=== PATIENT | female | born 1945 | race Two or more races ===

== ENCOUNTER 2022-05-26 21:23 | Inpatient (IN) | payer MEDICARE, OTHER ==
[~2022-05-26] VITALS: Ht 167.6 cm; Wt 81.6 kg
[2022-05-26 22:57] LABS: BILIRUBIN,URINE NEGATIVE (NEGATIVE); COLOR,URINE YELLOW (YELLOW); LEUKOCYTE ESTERASE ,URINE NEGATIVE (NEGATIVE); NITRITE, URINE NEGATIVE (NEGATIVE); PROTEIN,URINE NEGATIVE (NEGATIVE); UGLUCOSE NEGATIVE (NEGATIVE); UROBILINOGEN,URINE 0.2 EU/dL (0.2)
[2022-05-26 22:57] LABS: BASOPHILS % (AUTO) 0.8 % (0.0-2.0); EOSINOPHILS % (AUTO) 4.7 % (0.0-6.0); HEMATOCRIT 40 % (33-45); LYMPHOCYTES # (AUTO) 1.4 K/uL (0.8-4.8); LYMPHOCYTES % (AUTO) 25.4 % (20.0-44.0); MEAN CORPUSCULAR HGB CONC 33 g/dl (31.0-36.0); MEAN CORPUSCULAR VOLUME 86 fL (82-100); MONOCYTES # (AUTO) 0.5 K/uL (0.1-1.30); MONOCYTES % (AUTO) 8.2 % (2.0-12.0); NEUTROPHILS # (AUTO) 3.4 K/uL (1.8-8.9); NEUTROPHILS % (AUTO) 60.9 % (43.0-81.0); PLATELET COUNT (AUTO) 233 K/uL (150-450); RED BLOOD CELL COUNT(AUTO) 4.63 MIL/uL (4.0-5.2); WHITE BLOOD COUNT (AUTO) 5.5 K/uL (4.3-11.0)
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
[2022-05-26 23:17] LABS: CALCIUM, SERUM 9.2 mg/dL (8.5-10.1); CARBON DIOXIDE 30 mmol/L (21-32); CHLORIDE 105 mmol/L (98-107); CREATININE 0.9 mg/dL (0.6-1.3); GLUCOSE 118 mg/dL (74-106); POTASSIUM 3.8 mmol/L (3.5-5.1); SODIUM SERUM 142 mmol/L (136-145); UREA NITROGEN, BLOOD 13 mg/dL (7-18)
[2022-05-26 23:21] LABS: ALANINE AMINOTRANSFERASE 62 U/L (12-78); ALBUMIN 3.6 g/dL (3.4-5.0); ALCOHOL, BLOOD < 3 mg/dL (0-0); ALKALINE PHOSPHATASE 103 U/L (46-116); ASPARTATE AMINOTRANSFERASE 35 U/L (15-37); BILIRUBIN,DIRECT 0.2 mg/dL (0.0-0.2); BILIRUBIN,TOTAL 0.3 mg/dL (0.2-1.0); TOTAL PROTEIN, SERUM 7.8 g/dL (6.4-8.2)
[2022-05-27] MEDS ORDERED: ACET325T53 PO (03:13)
[2022-05-27] MEDS ORDERED: METF-440 PO (03:13)
[2022-05-27] MEDS ORDERED: PANT40TA49 PO (03:13)
[2022-05-27] MEDS ORDERED: LEVO125T8 PO (03:13)
[2022-05-27] MEDS ORDERED: PALI156D IM (03:13)
[2022-05-27] MEDS ORDERED: ASCO-373 PO (03:13)
[2022-05-27] MEDS ORDERED: MAGN400O21 PO (03:13)
[2022-05-27] MEDS ORDERED: ASPI-1169 PO (03:13)
[2022-05-27] MEDS ORDERED: SERT100T PO (03:13)
[2022-05-27] MEDS ORDERED: LISI2.5T2 PO (03:13)
[2022-05-27] MEDS ORDERED: MAG30ORA PO (03:13)
[2022-05-27] MEDS ORDERED: RISP1TAB7 PO (03:13)
[2022-05-27] MEDS ORDERED: BENZ2TAB7 PO (03:13)
[2022-05-27] MEDS ORDERED: FERR325T23 PO (03:13)
--- NOTE | 2022-05-27 03:50 | NUR ---
PT TO GPS VIA [facility].
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
[2022-05-27] MEDS ORDERED: ACETAMINOPHEN 325 MG TABLET PO PRN ×2 (04:30→11:30)
[2022-05-27] MEDS ORDERED: TEMAZEPAM 7.5 MG CAPSULE PO PRN (04:30)
[2022-05-27] MEDS ORDERED: MAG HYDROX/AL HYDROX/SIMETH 30 ML UDC PO PRN ×2 (04:30→11:30)
[2022-05-27] MEDS ORDERED: BLOOD SUGAR DIAGNOSTIC 1 EACH STRIP IN ONE (04:30)
[2022-05-27] MEDS ORDERED: MAGNESIUM HYDROXIDE 30 ML UDC PO PRN ×2 (04:30→11:30)
[2022-05-27 04:41] VITALS: BP 123/74
--- NOTE | 2022-05-27 07:30 | NUR ---
PT RECEIVED RESTING COMFORTABLY IN BED. NO S/S OR C/O PAIN OR DISTRESS NOTED SIDE RAILS UP X2. WILL CONTINUE PLAN OF CARE.
[2022-05-27 08:00] VITALS: BP 152/78
[2022-05-27] MEDS: LEVOTHYROXINE SODIUM 125 MCG TABLET PO SCH (12:04)
[2022-05-27] MEDS: FERROUS SULFATE (325 MG) 325 MG/TAB TABLET PO SCH (12:04)
[2022-05-27] MEDS: ASPIRIN 81 MG TAB.CHEW PO SCH (12:05)
[2022-05-27 16:00] VITALS: BP 127/60
[2022-05-27] MEDS: risperiDONE 1 MG TABLET PO SCH ×2 (17:35→21:27)
[2022-05-27] MEDS: METFORMIN 500 MG TABLET PO SCH (17:35)
--- NOTE | 2022-05-27 18:30 | NUR ---
CHANGE OF SHIFT REPORT PT RESTING COMFORTABLY IN BED. NO S/S OR C/O PAIN OR DISTRESS NOTED. SIDE RAILS UP X2, CALL LIGHT LEFT WITHIN REACH. PT KEPT CLEAN, DRY, AND COMFORTABLE. NO SIGNIFICANT CHANGES SINCE PREVIOUS SHIFT.
[2022-05-27 21:34] VITALS: BP 143/73
[2022-05-28 06:54] LABS: BASOPHILS % (AUTO) 0.7 % (0.0-2.0); EOSINOPHILS % (AUTO) 5.4 % (0.0-6.0); HEMATOCRIT 38 % (33-45); HEMOGLOBIN 12.5 g/dL (11.5-14.8); LYMPHOCYTES # (AUTO) 1.5 K/uL (0.8-4.8); MEAN CORPUSCULAR HGB CONC 33 g/dl (31.0-36.0); MEAN CORPUSCULAR VOLUME 86 fL (82-100); MONOCYTES # (AUTO) 0.5 K/uL (0.1-1.30); MONOCYTES % (AUTO) 8.5 % (2.0-12.0); NEUTROPHILS # (AUTO) 3.9 K/uL (1.8-8.9); NEUTROPHILS % (AUTO) 61.4 % (43.0-81.0); PLATELET COUNT (AUTO) 215 K/uL (150-450); RED BLOOD CELL COUNT(AUTO) 4.39 MIL/uL (4.0-5.2); WHITE BLOOD COUNT (AUTO) 6.3 K/uL (4.3-11.0)
[2022-05-28] MEDS: PANTOPRAZOLE 40 MG TABLET.DR PO SCH ×2 (07:30→08:22)
[2022-05-28 07:33] LABS: CALCIUM, SERUM 8.6 mg/dL (8.5-10.1); POTASSIUM 3.9 mmol/L (3.5-5.1)
[2022-05-28 08:00] VITALS: BP 142/65
[2022-05-28] MEDS: METFORMIN 500 MG TABLET PO SCH ×2 (08:22→16:21)
[2022-05-28] MEDS: LISINOPRIL (5MG) 5 MG TABLET PO SCH (08:23)
[2022-05-28] MEDS: ASPIRIN 81 MG TAB.CHEW PO SCH ×2 (08:23→09:00)
[2022-05-28] MEDS: LEVOTHYROXINE SODIUM 125 MCG TABLET PO SCH (08:23)
[2022-05-28] MEDS: risperiDONE 1 MG TABLET PO SCH ×3 (08:24→21:40)
[2022-05-28] MEDS: FERROUS SULFATE (325 MG) 325 MG/TAB TABLET PO SCH (08:24)
[2022-05-28] MEDS: ASCORBIC ACID 500 MG TABLET PO SCH (08:25)
--- NOTE | 2022-05-28 09:38 | NUR ---
SW Treatment Plan: Pt refused to sign treatment plan and was paranoid.
--- NOTE | 2022-05-28 09:38 | NUR ---
GIL Initial Discharge Note: Patient currently resides at [facility] [address] [place] [address] [facility] [place] [address] . [facility]anga admin ([phone]) stated that pt is welcomed back when stable. GIL will contact pt's daughter Linda ([phone]) to discuss treatment/discharge plan. GIL will work with the MD, family, and pt to help coordinate appropriate discharge.
--- NOTE | 2022-05-28 09:39 | NUR ---
GIL Clinical Note: Pt placed on a 5150 hold for GD. Pt was paranoid at the facility. Patient currently resides at [address] [place] [address] . [facility]anga admin ([phone]) stated that pt is welcomed back when stable. GIL will contact pt's daughter Linda ([phone]) to discuss treatment/discharge plan. GIL will work with the MD, family, and pt to help coordinate appropriate discharge.
--- NOTE | 2022-05-28 15:13 | NUR ---
GIL Family Contact: GIL contacted pt's daughter Linda ([phone]) and left a detailed voicemail of pt's admission stating [facility] and pt will be welcomed back when stable.
[2022-05-28 16:00] VITALS: BP 111/52
[2022-05-28] MEDS: LORAZEPAM 0.5 MG TABLET PO PRN (17:56)
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
[2022-05-28 19:56] VITALS: BP 147/62
[2022-05-29 08:00] VITALS: BP 121/53
[2022-05-29] MEDS: PANTOPRAZOLE 40 MG TABLET.DR PO SCH (08:08)
[2022-05-29] MEDS: LEVOTHYROXINE SODIUM 125 MCG TABLET PO SCH (08:08)
[2022-05-29] MEDS: ASPIRIN 81 MG TAB.CHEW PO SCH (09:08)
[2022-05-29] MEDS: risperiDONE 1 MG TABLET PO SCH ×3 (09:08→21:07)
[2022-05-29] MEDS: LISINOPRIL (5MG) 5 MG TABLET PO SCH (09:09)
[2022-05-29] MEDS: METFORMIN 500 MG TABLET PO SCH ×2 (09:10→16:42)
[2022-05-29] MEDS: ASCORBIC ACID 500 MG TABLET PO SCH (09:10)
[2022-05-29] MEDS: FERROUS SULFATE (325 MG) 325 MG/TAB TABLET PO SCH (09:10)
[2022-05-29 16:00] VITALS: BP 130/57
[2022-05-29 20:04] VITALS: BP 117/50
[2022-05-30 08:00] VITALS: BP 128/44
[2022-05-30] MEDS: PANTOPRAZOLE 40 MG TABLET.DR PO SCH (08:16)
[2022-05-30] MEDS: LEVOTHYROXINE SODIUM 125 MCG TABLET PO SCH (08:16)
[2022-05-30] MEDS: ASPIRIN 81 MG TAB.CHEW PO SCH (08:16)
[2022-05-30] MEDS: LISINOPRIL (5MG) 5 MG TABLET PO SCH (08:16)
[2022-05-30] MEDS: METFORMIN 500 MG TABLET PO SCH ×2 (08:17→17:07)
[2022-05-30] MEDS: FERROUS SULFATE (325 MG) 325 MG/TAB TABLET PO SCH (08:17)
[2022-05-30] MEDS: risperiDONE 1 MG TABLET PO SCH ×3 (08:17→21:05)
[2022-05-30] MEDS: ASCORBIC ACID 500 MG TABLET PO SCH (08:17)
[2022-05-30 16:00] VITALS: BP 118/51
--- NOTE | 2022-05-30 19:30 | NUR ---
RN notes Received Pt from morning nurse. Pt is awake laying in bed comfortably. Pt is alert and orientedX2, calm, cooperative, isolative, anxious, med compliant and directable. Reality orientation provided. VS is stable. on room air. No SOB. No S/s of distress noted. Snacks is offered. safety precautions is maintained. Will continue to monitor Q 15 mins checks for safety and behavior.
[2022-05-30 19:55] VITALS: BP 128/54
[2022-05-30] MEDS: LORAZEPAM 0.5 MG TABLET PO PRN (23:49)
--- NOTE | 2022-05-30 23:50 | NUR ---
RN notes Pt is feeling anxious, and argumentative. Administered ativan as ordered. safety precautions is maintained. will continue to monitor.
[2022-05-31 08:00] VITALS: BP 129/61
[2022-05-31] MEDS: ASPIRIN 81 MG TAB.CHEW PO SCH (08:11)
[2022-05-31] MEDS: PANTOPRAZOLE 40 MG TABLET.DR PO SCH (08:11)
[2022-05-31] MEDS: LEVOTHYROXINE SODIUM 125 MCG TABLET PO SCH (08:11)
[2022-05-31] MEDS: ASCORBIC ACID 500 MG TABLET PO SCH (08:12)
[2022-05-31] MEDS: LISINOPRIL (5MG) 5 MG TABLET PO SCH (08:12)
[2022-05-31] MEDS: FERROUS SULFATE (325 MG) 325 MG/TAB TABLET PO SCH (08:12)
[2022-05-31] MEDS: METFORMIN 500 MG TABLET PO SCH ×2 (08:12→16:12)
[2022-05-31] MEDS: risperiDONE 1 MG TABLET PO SCH ×3 (08:12→21:41)
[2022-05-31 16:00] VITALS: BP 140/52
[2022-05-31 20:00] VITALS: BP 126/72
--- NOTE | 2022-06-01 05:19 | NUR ---
CLOSING NOTES: AMBULATES INDEPENDENTLY STEADY ON HER LEGS WILL ASK FOR MANY ITEMS JUICE MOUTHWASH FOOD TOOTHPASTE FEMALE PADS UNDERWEAR. SLEPT THUR THE NIGHT GOING TO BED AT 10PM SPEECH CLEAR MEDICATION COMPLIANT
--- NOTE | 2022-06-01 07:45 | NUR ---
rn notes Pt is awake laying in bed comfortably. Pt is alert and orientedX2, calm, cooperative, isolative, anxious, and med compliant. Reality orientation provided. VS is stable. on room air. No SOB. No S/s of distress noted. safety precautions is maintained. Will continue to monitor Q 15 mins checks for safety and behavior.
[2022-06-01 08:00] VITALS: BP 128/65
[2022-06-01] MEDS: PANTOPRAZOLE 40 MG TABLET.DR PO SCH (08:09)
[2022-06-01] MEDS: LEVOTHYROXINE SODIUM 125 MCG TABLET PO SCH (08:09)
[2022-06-01] MEDS: FERROUS SULFATE (325 MG) 325 MG/TAB TABLET PO SCH (08:19)
[2022-06-01] MEDS: ASPIRIN 81 MG TAB.CHEW PO SCH (08:19)
[2022-06-01] MEDS: ASCORBIC ACID 500 MG TABLET PO SCH (08:20)
[2022-06-01] MEDS: METFORMIN 500 MG TABLET PO SCH ×2 (08:20→16:26)
[2022-06-01] MEDS: LISINOPRIL (5MG) 5 MG TABLET PO SCH (08:20)
[2022-06-01] MEDS: risperiDONE 1 MG TABLET PO SCH ×3 (08:20→21:19)
--- NOTE | 2022-06-01 09:21 | NUR ---
Court Notification: SW contacted pt's daughter Linda ([phone]) and left a voicemail of [phone] hearing.
[2022-06-01] MEDS: BENZTROPINE MESYLATE (1 MG) 1 MG TABLET PO SCH ×2 (10:52→16:26)
[2022-06-01] MEDS: DIVALPROEX SODIUM 250 MG TABLET.DR PO SCH ×2 (12:06→16:26)
--- NOTE | 2022-06-01 15:56 | NUR ---
Court Hearing: Patient's court hearing for 3170 hearing was today and it was upheld for GD.
[2022-06-01 16:00] VITALS: BP 128/60
--- NOTE | 2022-06-01 17:47 | NUR ---
Called RT for the EKG order and spoke to Anson
--- NOTE | 2022-06-01 18:31 | NUR ---
RN notes Pt is awake laying in bed comfortably. Alert and orientedX2, ambulatory, calm, cooperative, med compliant but does not socialized with others, suspicious. Frequent reorientation done, encourage the patient to participate in the units group activities. On room air. No SOB. No s/s of distress noted. snacks is given in between meals, care rendered. Kept patient tidy and comfortable. all due meds given. Safety precautions is maintained. Will endorsed to incoming nurse.
--- NOTE | 2022-06-01 19:38 | NUR ---
N NOTES: RECEIVED PATIENT RESTING IN ROOM , A/OX2. NO S/SX OF ACUTE DISTRESS NOTED. PATIENT REMAINS EASILY AGITATED,DISORGNIZED, HYPERVERBAL, NEEDY , DEMENDANING, PARANOID , NEEDS FREQUENTLY REDIRECTIONS , COOPERATIVE TO CARE. DENIES SI/HI/AVH AT THIS TIME. SAFETY PRECAUTIONS MAINTAINED. WILL CONTINUE TO MONITOR Q15MIN ROUNDS FOR SAFETY AND BEHAVIOR.
--- NOTE | 2022-06-01 19:39 | NUR ---
RN NOTES: RECEIVED PATIENT WALKING AROUND THE UNIT , A/OX3. NO S/SX OF ACUTE DISTRESS NOTED. PATIENT REMAINS EASILY AGITATED,DISORGNIZED, HYPERVERBAL, NEEDY , DEMENDANING MED COMPLIANT, COOPERATIVE TO CARE. DENIES SI/HI/AVH AT THIS TIME. SAFETY PRECAUTIONS MAINTAINED. WILL CONTINUE TO MONITOR Q15MIN ROUNDS FOR SAFETY AND BEHAVIOR.
[2022-06-01 20:45] VITALS: BP 129/65
[2022-06-01] MEDS: LORAZEPAM 0.5 MG TABLET PO PRN (23:14)
--- NOTE | 2022-06-01 23:14 | NUR ---
RN NOTES: ANXIETY PT. C/O FEELING ANXIOUS, RESTLESS, PARANOID, ATIVAN 0.5 MG PO GIVEN PER PT. REQUEST, WILL CONTINUE TO MONITOR.
--- NOTE | 2022-06-02 06:25 | NUR ---
AUTOMATION APPLICATION ENGINEER NOTES PATIENT IS PARANOID ,ANXIOUS,MED COMPLIANT.ADMINISTERED PRN ATIVAN AND IS EFFECTIVE EFFECTIVE.PATIENT ASLEEP FOR 8 HOURS ,NO DISTRESS NOTED.ALL NEEDS MET AND ANTICIPATED.WILL CONTINUE TO MONITOR FOR SAFETY AND BEHAVIOR
[2022-06-02 08:00] VITALS: BP 101/61
[2022-06-02] MEDS: DIVALPROEX SODIUM 250 MG TABLET.DR PO SCH ×3 (08:12→16:21)
[2022-06-02] MEDS: PANTOPRAZOLE 40 MG TABLET.DR PO SCH (08:12)
[2022-06-02] MEDS: ASPIRIN 81 MG TAB.CHEW PO SCH (08:12)
[2022-06-02] MEDS: BENZTROPINE MESYLATE (1 MG) 1 MG TABLET PO SCH ×2 (08:12→16:21)
[2022-06-02] MEDS: FERROUS SULFATE (325 MG) 325 MG/TAB TABLET PO SCH (08:12)
[2022-06-02] MEDS: LISINOPRIL (5MG) 5 MG TABLET PO SCH (08:12)
[2022-06-02] MEDS: LEVOTHYROXINE SODIUM 125 MCG TABLET PO SCH (08:13)
[2022-06-02] MEDS: ASCORBIC ACID 500 MG TABLET PO SCH (08:13)
[2022-06-02] MEDS: METFORMIN 500 MG TABLET PO SCH ×2 (08:13→16:21)
[2022-06-02] MEDS: risperiDONE 1 MG TABLET PO SCH ×3 (08:13→21:14)
--- NOTE | 2022-06-02 09:30 | NUR ---
RN Notes: Received pt. asleep in bed, breathing is even and unlabored. Ate 100% for breakfast and compliant on meds. Pt. is in the room most of the time and with limited interactions to staffs and suspicious. Encouraged to verbalize feelings and motivated to take shower. Needs attended and will continue to monitor for safety.
[2022-06-02 16:00] VITALS: BP 106/50
[2022-06-02 20:09] VITALS: BP 125/57
[2022-06-03 08:00] VITALS: BP 114/52
[2022-06-03] MEDS: PANTOPRAZOLE 40 MG TABLET.DR PO SCH (08:01)
[2022-06-03] MEDS: LEVOTHYROXINE SODIUM 125 MCG TABLET PO SCH (08:01)
[2022-06-03] MEDS: LISINOPRIL (5MG) 5 MG TABLET PO SCH (09:00)
[2022-06-03] MEDS: BENZTROPINE MESYLATE (1 MG) 1 MG TABLET PO SCH ×2 (09:14→17:00)
[2022-06-03] MEDS: METFORMIN 500 MG TABLET PO SCH ×2 (09:15→17:00)
[2022-06-03] MEDS: DIVALPROEX SODIUM 250 MG TABLET.DR PO SCH ×3 (09:15→17:00)
[2022-06-03] MEDS: risperiDONE 1 MG TABLET PO SCH ×3 (09:15→21:08)
[2022-06-03] MEDS: FERROUS SULFATE (325 MG) 325 MG/TAB TABLET PO SCH (09:16)
[2022-06-03] MEDS: ASPIRIN 81 MG TAB.CHEW PO SCH (09:16)
[2022-06-03] MEDS: ASCORBIC ACID 500 MG TABLET PO SCH (09:16)
[2022-06-03 16:00] VITALS: BP 110/54
[2022-06-03 20:09] VITALS: BP 114/55
[2022-06-04 08:00] VITALS: BP 124/57
[2022-06-04] MEDS: FERROUS SULFATE (325 MG) 325 MG/TAB TABLET PO SCH (08:14)
[2022-06-04] MEDS: METFORMIN 500 MG TABLET PO SCH ×2 (08:14→17:09)
[2022-06-04] MEDS: PANTOPRAZOLE 40 MG TABLET.DR PO SCH (08:15)
[2022-06-04] MEDS: LEVOTHYROXINE SODIUM 125 MCG TABLET PO SCH (08:15)
[2022-06-04] MEDS: risperiDONE 1 MG TABLET PO SCH ×3 (08:15→21:01)
[2022-06-04] MEDS: DIVALPROEX SODIUM 250 MG TABLET.DR PO SCH ×3 (08:15→17:09)
[2022-06-04] MEDS: BENZTROPINE MESYLATE (1 MG) 1 MG TABLET PO SCH ×2 (08:15→17:09)
[2022-06-04] MEDS: ASPIRIN 81 MG TAB.CHEW PO SCH (08:16)
[2022-06-04] MEDS: LISINOPRIL (5MG) 5 MG TABLET PO SCH (08:16)
[2022-06-04] MEDS: ASCORBIC ACID 500 MG TABLET PO SCH (08:17)
--- NOTE | 2022-06-04 08:18 | NUR ---
CONSERVATOR: GIL spoke with pt's daughter Linda ([phone]) who stated that she is the LPS Conservator. Documents are in the chart. GIL sent Detain and Treat for daughter to sign.
--- NOTE | 2022-06-04 13:40 | NUR ---
LAW OFFICE: GIL contacted 's law office [employer] ([phone]) to assist with the detain and treat. GIL left a detailed voicemail.
[2022-06-04 16:00] VITALS: BP 113/52
[2022-06-04 20:02] VITALS: BP 131/56
[2022-06-05 08:00] VITALS: BP 126/65
[2022-06-05] MEDS: LEVOTHYROXINE SODIUM 125 MCG TABLET PO SCH (08:15)
[2022-06-05] MEDS: PANTOPRAZOLE 40 MG TABLET.DR PO SCH (08:15)
[2022-06-05] MEDS: METFORMIN 500 MG TABLET PO SCH ×2 (09:04→17:04)
[2022-06-05] MEDS: ASCORBIC ACID 500 MG TABLET PO SCH (09:04)
[2022-06-05] MEDS: DIVALPROEX SODIUM 250 MG TABLET.DR PO SCH ×3 (09:04→17:04)
[2022-06-05] MEDS: BENZTROPINE MESYLATE (1 MG) 1 MG TABLET PO SCH ×2 (09:04→17:04)
[2022-06-05] MEDS: risperiDONE 1 MG TABLET PO SCH ×3 (09:04→21:02)
[2022-06-05] MEDS: FERROUS SULFATE (325 MG) 325 MG/TAB TABLET PO SCH (09:04)
[2022-06-05] MEDS: LISINOPRIL (5MG) 5 MG TABLET PO SCH (09:05)
[2022-06-05] MEDS: ASPIRIN 81 MG TAB.CHEW PO SCH (09:07)
[2022-06-05 16:00] VITALS: BP 131/60
[2022-06-05 20:03] VITALS: BP 111/52
[2022-06-06 08:00] VITALS: BP 105/53
--- NOTE | 2022-06-06 08:12 | NUR ---
SW Discharge Note: Pt will be discharged to [facility] located at [address] [id number] . Please arrange ambulance at 1PM. Pts LPS conservator Linda ([phone]) is aware and agreeable of dc. Upon discharge, the pt appears to be in a dysphoric mood and presented with a congruent affect. Pt appears to be alert and oriented x2 (place, self). Pt denies both suicidal and homicidal ideation as well as auditory and visual hallucinations. Pt appears to be ambulatory with a steady gait. Pt will be under the care of her psychiatrist, Dr. Tripp, located at [address] [facility] [address] [address]; . Pt will be under the care of retail performance coach, Dr. Joshi, located at [address] [place] [address] . The choice of vendor form and multidisciplinary exit care form were done, printed, signed, and given to the patient.
[2022-06-06] MEDS: LEVOTHYROXINE SODIUM 125 MCG TABLET PO SCH (08:25)
[2022-06-06] MEDS: PANTOPRAZOLE 40 MG TABLET.DR PO SCH (08:25)
[2022-06-06] MEDS: ASPIRIN 81 MG TAB.CHEW PO SCH (08:50)
[2022-06-06] MEDS: DIVALPROEX SODIUM 250 MG TABLET.DR PO SCH ×2 (08:50→12:16)
[2022-06-06] MEDS: ASCORBIC ACID 500 MG TABLET PO SCH (08:50)
[2022-06-06] MEDS: BENZTROPINE MESYLATE (1 MG) 1 MG TABLET PO SCH (08:51)
[2022-06-06] MEDS: METFORMIN 500 MG TABLET PO SCH (08:51)
[2022-06-06] MEDS: risperiDONE 1 MG TABLET PO SCH (08:51)
[2022-06-06 08:52] VITALS: BP 105/53
[2022-06-06] MEDS: LISINOPRIL (5MG) 5 MG TABLET PO SCH (08:52)
[2022-06-06] MEDS: FERROUS SULFATE (325 MG) 325 MG/TAB TABLET PO SCH (08:52)
[2022-06-06 09:08] LABS: BASOPHILS % (AUTO) 0.7 % (0.0-2.0); EOSINOPHILS % (AUTO) 4.9 % (0.0-6.0); HEMATOCRIT 37 % (33-45); HEMOGLOBIN 12.4 g/dL (11.5-14.8); LYMPHOCYTES # (AUTO) 1.5 K/uL (0.8-4.8); MEAN CORPUSCULAR HGB CONC 34 g/dl (31.0-36.0); MEAN CORPUSCULAR VOLUME 85 fL (82-100); MONOCYTES # (AUTO) 0.5 K/uL (0.1-1.30); MONOCYTES % (AUTO) 7.3 % (2.0-12.0); NEUTROPHILS # (AUTO) 4.2 K/uL (1.8-8.9); NEUTROPHILS % (AUTO) 64.1 % (43.0-81.0); PLATELET COUNT (AUTO) 213 K/uL (150-450); RED BLOOD CELL COUNT(AUTO) 4.34 MIL/uL (4.0-5.2); WHITE BLOOD COUNT (AUTO) 6.6 K/uL (4.3-11.0)
[2022-06-06 11:34] LABS: ALBUMIN 3.1 g/dL (3.4-5.0); BILIRUBIN,TOTAL 0.4 mg/dL (0.2-1.0); CALCIUM, SERUM 8.6 mg/dL (8.5-10.1); CREATININE 0.8 mg/dL (0.6-1.3); TOTAL PROTEIN, SERUM 6.7 g/dL (6.4-8.2)
[2022-06-06 11:37] LABS: POTASSIUM 4.2 mmol/L (3.5-5.1)
--- NOTE | 2022-06-06 13:45 | NUR ---
Patient discharged to [facility] in stable condition.Compliant with medications ,cooperative with treatment plans Patient denies SI/HI/AVH Behavior improved ,psychiatric tx plans met ,medical tx plans differed for for continual monitoring .Educated pt about after care plan (Exit -care)and copy provided Returned personal belongings to patient med list given and explained to patient able to verbalize understanding, report given to Jp MATHEWS in facility .Vs stable ,no c/o pain, report given to Erica BRADY in facility .Patient seen by and with discharge orders Patient discharge at 1345 with ambulance.
== END 2022-06-06 13:45 | DRG 885 ==
LOC: ER 21:29 → GPS 05-27 03:30
PROVIDERS: ADMIT Psychiatry & Neurology Psychosomatic Medicine; ATTEND Nurse Practitioner Acute Care
DX: F25.0 Schizoaffective disorder, bipolar type (principal); K21.9 Gastro-esophageal reflux disease without esophagitis; E11.9 Type 2 diabetes mellitus without complications; I10 Essential (primary) hypertension; F25.1 Schizoaffective disorder, depressive type; F32.9 Major depressive disorder, single episode, unspecified; E78.5 Hyperlipidemia, unspecified; E03.9 Hypothyroidism, unspecified; F41.9 Anxiety disorder, unspecified; E66.9 Obesity, unspecified; Z68.29 Body mass index [BMI] 29.0-29.9, adult; Z20.822 Contact with and (suspected) exposure to COVID-19; Z91.14 Patient's other noncompliance with medication regimen
CPT/HCPCS: 36415; 80048-TC; 80053-TC; 80061-TC; 80076-TC; 80164-TC; 82962-TC; 85025-TC; 87081-TC; 97110-TC; 97116-TC; 97530-TC; C9803; G0480

== ENCOUNTER 2023-05-20 18:55 | Inpatient (IN) | payer MEDICARE, OTHER ==
[~2023-05-20] VITALS: Ht 157.5 cm; Wt 91.6 kg
[~2023-05-20 18:55] MED LIST: ACET325T53 PO; ASCO-373 PO; ASPI-1169 PO; FERR325T23 PO; LEVO125T8 PO; LISI2.5T2 PO; MAG30ORA PO; MAGN400O21 PO; METF-440 PO; PANT40TA49 PO
[2023-05-20] MEDS: ACETAMINOPHEN ES 500 MG TABLET PO ONE (19:30)
[2023-05-20] MEDS ORDERED: ACETAMINOPHEN ES 500 MG TABLET ONE (19:32)
[2023-05-20] MEDS: IV NS 0.9% 1,000 ML BAG IV ONE (19:35)
[2023-05-20 19:53] LABS: BASOPHILS % (AUTO) 0.4 % (0.0-2.0); EOSINOPHILS # (AUTO) 0.1 K/uL (0.0-0.7); EOSINOPHILS % (AUTO) 1.3 % (0.0-6.0); HEMATOCRIT 40 % (33-45); HEMOGLOBIN 13.8 g/dL (11.5-14.8); LYMPHOCYTES # (AUTO) 0.9 K/uL (0.8-4.8); LYMPHOCYTES % (AUTO) 11.7 % (20.0-44.0); MEAN CORPUSCULAR HEMOGLOBIN 30 PG (26.0-33.0); MEAN CORPUSCULAR HGB CONC 34 g/dl (31.0-36.0); MEAN CORPUSCULAR VOLUME 86 fL (82-100); MONOCYTES # (AUTO) 0.4 K/uL (0.1-1.30); MONOCYTES % (AUTO) 5.9 % (2.0-12.0); NEUTROPHILS # (AUTO) 6.1 K/uL (1.8-8.9); NEUTROPHILS % (AUTO) 80.7 % (43.0-81.0); PLATELET COUNT (AUTO) 219 K/uL (150-450); RED BLOOD CELL COUNT(AUTO) 4.68 MIL/uL (4.0-5.2); RED CELL DISTRIBUTION WIDTH 16.5 % (11.5-15.0); WHITE BLOOD COUNT (AUTO) 7.5 K/uL (4.3-11.0)
[2023-05-20 20:05] LABS: INR 0.97 (0.91-1.10); PARTIAL THROMBOPLASTIN TIME 28.1 SEC (24.3-34.3); PROTHROMBIN TIME 10.3 SECS (9.2-11.1)
[2023-05-20 20:17] LABS: CALCIUM, SERUM 9.5 mg/dL (8.5-10.1); CARBON DIOXIDE 30 mmol/L (21-32); CHLORIDE 97 mmol/L (98-107); CREATININE 1.1 mg/dL (0.6-1.3); GLUCOSE 144 mg/dL (74-106); SODIUM SERUM 135 mmol/L (136-145); UREA NITROGEN, BLOOD 12 mg/dL (7-18)
[2023-05-20 20:22] LABS: ALANINE AMINOTRANSFERASE 83 U/L (12-78); ALBUMIN 3.2 g/dL (3.4-5.0); ALKALINE PHOSPHATASE 124 U/L (46-116); ASPARTATE AMINOTRANSFERASE 51 U/L (15-37); BILIRUBIN,DIRECT 0.2 mg/dL (0.0-0.2); BILIRUBIN,TOTAL 0.6 mg/dL (0.2-1.0); TOTAL PROTEIN, SERUM 7.5 g/dL (6.4-8.2)
[2023-05-20 20:25] VITALS: BP 141/59; TEMP 98.6; O2SAT 97
[2023-05-20 20:35] LABS: LACTIC ACID 1.6 mmol/L (0.4-2.0)
[2023-05-20 20:53] LABS: APPEARANCE,URINE CLEAR (CLEAR); BILIRUBIN,URINE NEGATIVE (NEGATIVE); BLOOD, URINE TRACE Ery/uL (NEGATIVE); COLOR,URINE YELLOW (YELLOW); KETONES,URINE NEGATIVE (NEGATIVE); LEUKOCYTE ESTERASE ,URINE 1+ (NEGATIVE); NITRITE, URINE POSITIVE (NEGATIVE); PH,URINE 6.5 (5.0-8.0); PROTEIN,URINE NEGATIVE (NEGATIVE); UGLUCOSE NEGATIVE (NEGATIVE)
[2023-05-20 21:04] LABS: ADD URINE CULTURE YES; BACTERIA,URINE 2+ /HPF (None Seen)
[2023-05-20] MEDS ORDERED: CEFTRIAXONE 1GM BAG (ER ONLY) 50 ML IV ONE (21:51)
[2023-05-20] MEDS: CEFTRIAXONE 1GM BAG (ER ONLY) 1 GM/50 ML PIGGYBACK IV ONE (21:55)
[2023-05-20] MEDS ORDERED: IV PREMIX D5 1/2NS + KCL 1,000 ML IV ONE (21:56)
[2023-05-20] MEDS ORDERED: ONDANSETRON HCL/PF 4 MG/2 ML VIAL IVP PRN (22:00)
[2023-05-20] MEDS ORDERED: Z GUARD REMEDY 4 OZ OINT TP PRN (22:00)
[2023-05-20] MEDS ORDERED: ENOXAPARIN SODIUM 30 MG/0.3 ML DISP.SYRIN SQ SCH (22:00)
[2023-05-20] MEDS ORDERED: MAG HYDROX/AL HYDROX/SIMETH 30 ML UDC PO PRN (22:00)
[2023-05-20] MEDS: IV PREMIX D5 1/2NS + KCL 1,000 ML IV ONE (22:20)
[2023-05-20] MEDS ORDERED: CEFTRIAXONE 1 G in IV D5W 50 ML IV SCH (23:22)
[2023-05-21] MEDS ORDERED: Z GUARD REMEDY 4 OZ OINT TP PRN
[2023-05-21] MEDS: MIRTAZAPINE 15 MG TABLET PO SCH (00:24)
[2023-05-21] MEDS: MAGNESIUM HYDROXIDE 30 ML UDC PO PRN (00:24)
[2023-05-21] MEDS: IV NS 0.9% 1,000 ML IV SCH (00:25)
[2023-05-21 00:42] VITALS: BP 141/59; TEMP 98.6; O2SAT 96
[2023-05-21 07:21] LABS: BASOPHILS % (AUTO) 0.5 % (0.0-2.0); CALCIUM, SERUM 8.6 mg/dL (8.5-10.1); CARBON DIOXIDE 28 mmol/L (21-32); CHLORIDE 108 mmol/L (98-107); CREATININE 0.8 mg/dL (0.6-1.3); EOSINOPHILS # (AUTO) 0.2 K/uL (0.0-0.7); GLUCOSE 105 mg/dL (74-106); HEMATOCRIT 34 % (33-45); HEMOGLOBIN 11.8 g/dL (11.5-14.8); LYMPHOCYTES # (AUTO) 1.5 K/uL (0.8-4.8); LYMPHOCYTES % (AUTO) 21.7 % (20.0-44.0); MAGNESIUM 2.7 mg/dL (1.8-2.4); MEAN CORPUSCULAR HEMOGLOBIN 29 PG (26.0-33.0); MEAN CORPUSCULAR HGB CONC 34 g/dl (31.0-36.0); MEAN CORPUSCULAR VOLUME 86 fL (82-100); MONOCYTES # (AUTO) 0.5 K/uL (0.1-1.30); MONOCYTES % (AUTO) 7.3 % (2.0-12.0); NEUTROPHILS # (AUTO) 4.5 K/uL (1.8-8.9); NEUTROPHILS % (AUTO) 67.5 % (43.0-81.0); PHOSPHORUS 2.1 mg/dL (2.5-4.9); PLATELET COUNT (AUTO) 191 K/uL (150-450); POTASSIUM 3.2 mmol/L (3.5-5.1); RED CELL DISTRIBUTION WIDTH 16.4 % (11.5-15.0); SODIUM SERUM 142 mmol/L (136-145); UREA NITROGEN, BLOOD 9 mg/dL (7-18); WHITE BLOOD COUNT (AUTO) 6.7 K/uL (4.3-11.0)
[2023-05-21 07:56] LABS: CHOLESTEROL 127 mg/dL (<200); HDL CHOLESTEROL 40 mg/dL (40-60); LDL 72 mg/dL (0-99); THYROID STIMULATING HORMONE 6.978 uIU/mL (0.358-3.74); TRIGLYCERIDES 69 mg/dL (30-150)
[2023-05-21 08:00] VITALS: BP 106/50; TEMP 98.2; O2SAT 96
[2023-05-21] MEDS ORDERED: OLAN5TAB3 PO (08:54)
[2023-05-21] MEDS ORDERED: MULT-213 PO (08:54)
[2023-05-21] MEDS ORDERED: PALI234D IM (08:54)
[2023-05-21] MEDS ORDERED: NA P133E RC (08:54)
[2023-05-21] MEDS ORDERED: BENZ1TAB7 PO (08:54)
[2023-05-21] MEDS ORDERED: MAG-151 PO (08:54)
[2023-05-21] MEDS ORDERED: MIRT7.5T10 PO (08:54)
[2023-05-21] MEDS ORDERED: BISA10SU11 RC (08:54)
[2023-05-21] MEDS: LISINOPRIL (5MG) 5 MG TABLET PO SCH (09:00)
[2023-05-21] MEDS: ASPIRIN 81 MG TAB.CHEW PO SCH (09:05)
[2023-05-21] MEDS: MEGESTROL ACETATE 40 MG TABLET PO SCH (09:05)
[2023-05-21] MEDS: LEVOTHYROXINE SODIUM 125 MCG TABLET PO SCH (09:06)
[2023-05-21] MEDS: FERROUS SULFATE (325 MG) 325 MG/TAB TABLET PO SCH (09:06)
[2023-05-21] MEDS: ENOXAPARIN SODIUM 40 MG/0.4 ML DISP.SYRIN SQ SCH (09:12)
[2023-05-21] MEDS: PANTOPRAZOLE 40 MG VIAL IV SCH (09:38)
[2023-05-21] MEDS: POTASSIUM CHLORIDE 20 MEQ TAB.PRT.SR PO SCH (10:51)
[2023-05-21 16:00] VITALS: BP 122/60; TEMP 98.4; O2SAT 98
[2023-05-21] MEDS: K PHOS NEUTRAL 250 MG TABLET PO ONE (16:25)
[2023-05-21] MEDS ORDERED: DEXTROSE 50%-WATER 50 ML DISP.SYRIN IV PRN (18:30)
[2023-05-21 20:30] VITALS: BP 128/60; TEMP 98.8; O2SAT 98
[2023-05-21] MEDS: BLOOD SUGAR DIAGNOSTIC 1 EACH STRIP VI SCH (22:02)
[2023-05-21] MEDS: *INSULIN REGULAR(HUMULIN R)HUM 100 UNIT/ML VIAL SQ PRN (22:07)
[2023-05-21] MEDS: CEFTRIAXONE 1 G in IV D5W 50 ML IV SCH (22:12)
[2023-05-22] MEDS: INSULIN REGULAR, HUMAN 100 UNIT/ML 3 ML VIAL SQ PRN (06:52)
[2023-05-22 07:00] VITALS: BP 121/51; TEMP 98.8; O2SAT 95
[2023-05-22 09:42] LABS: BASOPHILS % (AUTO) 0.8 % (0.0-2.0); EOSINOPHILS # (AUTO) 0.2 K/uL (0.0-0.7); EOSINOPHILS % (AUTO) 3.9 % (0.0-6.0); HEMATOCRIT 37 % (33-45); HEMOGLOBIN 12.5 g/dL (11.5-14.8); LYMPHOCYTES # (AUTO) 1.6 K/uL (0.8-4.8); LYMPHOCYTES % (AUTO) 25.5 % (20.0-44.0); MEAN CORPUSCULAR HEMOGLOBIN 29 PG (26.0-33.0); MEAN CORPUSCULAR HGB CONC 34 g/dl (31.0-36.0); MEAN CORPUSCULAR VOLUME 87 fL (82-100); MONOCYTES # (AUTO) 0.5 K/uL (0.1-1.30); MONOCYTES % (AUTO) 7.2 % (2.0-12.0); NEUTROPHILS # (AUTO) 3.9 K/uL (1.8-8.9); NEUTROPHILS % (AUTO) 62.6 % (43.0-81.0); PLATELET COUNT (AUTO) 208 K/uL (150-450); RED BLOOD CELL COUNT(AUTO) 4.28 MIL/uL (4.0-5.2); RED CELL DISTRIBUTION WIDTH 16.9 % (11.5-15.0); WHITE BLOOD COUNT (AUTO) 6.3 K/uL (4.3-11.0)
[2023-05-22 09:51] LABS: CALCIUM, SERUM 8.5 mg/dL (8.5-10.1); CREATININE 0.7 mg/dL (0.6-1.3); POTASSIUM 3.7 mmol/L (3.5-5.1)
[2023-05-22] MEDS ORDERED: BISACODYL SUPP (10 MG) 10 MG/SUPP.RECT SUPP.RECT RC PRN (11:30)
[2023-05-22 16:00] VITALS: BP 107/63; TEMP 98.6; O2SAT 95
[2023-05-22] MEDS: DOCUSATE SODIUM 100 MG CAPSULE PO SCH (16:13)
[2023-05-22 20:00] VITALS: BP 124/52; TEMP 99.1; O2SAT 94
[2023-05-22] MEDS: SENNOSIDES 8.6 MG TABLET PO SCH (21:23)
[2023-05-23 06:54] LABS: BASOPHILS % (AUTO) 0.7 % (0.0-2.0); EOSINOPHILS # (AUTO) 0.2 K/uL (0.0-0.7); EOSINOPHILS % (AUTO) 3.9 % (0.0-6.0); HEMATOCRIT 36 % (33-45); HEMOGLOBIN 12.3 g/dL (11.5-14.8); LYMPHOCYTES # (AUTO) 1.6 K/uL (0.8-4.8); LYMPHOCYTES % (AUTO) 26.4 % (20.0-44.0); MEAN CORPUSCULAR HEMOGLOBIN 30 PG (26.0-33.0); MEAN CORPUSCULAR HGB CONC 34 g/dl (31.0-36.0); MEAN CORPUSCULAR VOLUME 87 fL (82-100); MONOCYTES # (AUTO) 0.4 K/uL (0.1-1.30); MONOCYTES % (AUTO) 6.4 % (2.0-12.0); NEUTROPHILS # (AUTO) 3.9 K/uL (1.8-8.9); NEUTROPHILS % (AUTO) 62.6 % (43.0-81.0); PLATELET COUNT (AUTO) 197 K/uL (150-450); RED BLOOD CELL COUNT(AUTO) 4.16 MIL/uL (4.0-5.2); RED CELL DISTRIBUTION WIDTH 17.1 % (11.5-15.0); WHITE BLOOD COUNT (AUTO) 6.2 K/uL (4.3-11.0)
[2023-05-23 07:43] LABS: CALCIUM, SERUM 8.7 mg/dL (8.5-10.1); CARBON DIOXIDE 22 mmol/L (21-32); CHLORIDE 107 mmol/L (98-107); CREATININE 0.7 mg/dL (0.6-1.3); GLUCOSE 104 mg/dL (74-106); POTASSIUM 3.7 mmol/L (3.5-5.1); SODIUM SERUM 139 mmol/L (136-145); UREA NITROGEN, BLOOD 12 mg/dL (7-18)
[2023-05-23 08:00] VITALS: BP 139/53; TEMP 98.9; O2SAT 97
[2023-05-23] MEDS: PANTOPRAZOLE 40 MG TABLET.DR PO SCH (08:46)
[2023-05-23] MEDS: BISACODYL SUPP (10 MG) 10 MG/SUPP.RECT SUPP.RECT RC ONE (11:52)
[2023-05-23 16:00] VITALS: BP 110/69; TEMP 98.4; O2SAT 96
[2023-05-23] MEDS: ACETAMINOPHEN 325 MG TABLET PO PRN (19:46)
[2023-05-23 20:00] VITALS: BP 150/80; TEMP 99.3; O2SAT 98
[2023-05-24 07:00] VITALS: BP 116/79; TEMP 97.9; O2SAT 96
[2023-05-24 16:01] VITALS: BP 130/83; TEMP 97.8; O2SAT 97
[2023-05-24 20:00] VITALS: BP 145/47; TEMP 97.8; O2SAT 97
[2023-05-24] MEDS ORDERED: PANT40TA2 PO (23:20)
[2023-05-24] MEDS ORDERED: SENN-261 PO (23:21)
[2023-05-24] MEDS ORDERED: DOCU100C36 PO (23:22)
[2023-05-24] MEDS ORDERED: MEGE40TA5 PO (23:25)
[2023-05-24] MEDS ORDERED: MIRT-90 PO (23:26)
[2023-05-25] MEDS ORDERED: GLUCERNA SHAKE 237 ML CAN PO SCH (09:00)
== END 2023-05-24 22:00 | DRG 690 ==
LOC: ER 19:04 → MED 21:45
PROVIDERS: ADMIT Nurse Practitioner Acute Care; ATTEND Internal Medicine
DX: N39.0 Urinary tract infection, site not specified (principal); E44.0 Moderate protein-calorie malnutrition; E87.1 Hypo-osmolality and hyponatremia; D68.69 Other thrombophilia; R62.7 Adult failure to thrive; E86.1 Hypovolemia; E87.6 Hypokalemia; D64.9 Anemia, unspecified; E03.9 Hypothyroidism, unspecified; E66.9 Obesity, unspecified; E78.5 Hyperlipidemia, unspecified; E88.09 Other disorders of plasma-protein metabolism, not elsewhere classified; F41.9 Anxiety disorder, unspecified; F25.9 Schizoaffective disorder, unspecified; I10 Essential (primary) hypertension; K21.9 Gastro-esophageal reflux disease without esophagitis; Z79.82 Long term (current) use of aspirin; Z79.84 Long term (current) use of oral hypoglycemic drugs; Z86.16 Personal history of COVID-19; K59.00 Constipation, unspecified; F79 Unspecified intellectual disabilities; E11.65 Type 2 diabetes mellitus with hyperglycemia; R74.01 Elevation of levels of liver transaminase levels; K42.9 Umbilical hernia without obstruction or gangrene; F29 Unspecified psychosis not due to a substance or known physiological condition; Z20.822 Contact with and (suspected) exposure to COVID-19; F32.9 Major depressive disorder, single episode, unspecified; F39 Unspecified mood [affective] disorder; M62.81 Muscle weakness (generalized); B96.20 Unspecified Escherichia coli [E. coli] as the cause of diseases classified elsewhere; Z73.6 Limitation of activities due to disability; R63.4 Abnormal weight loss; Z68.36 Body mass index [BMI] 36.0-36.9, adult
CPT/HCPCS: 36415; 71045-TC; 80048-TC; 80061-TC; 80076-TC; 81001; 82962-TC; 83605-TC; 83735-TC; 84100-TC; 84443-TC; 84484-TC; 85025-TC; 85730-TC; 87040-TC; 87086-TC; 97110-TC; 97112-TC; 97116-TC; 97530-TC; A4223; C9113; G0378; J0696; J1650; J1815; J3490; J7030; J7060

== ENCOUNTER 2023-05-24 20:21 | Inpatient (IN) | payer MEDICARE, OTHER ==
[~2023-05-24] VITALS: Ht 157.5 cm; Wt 91.6 kg
[~2023-05-24 20:21] MED LIST changes: -ASCO-373 PO; -ASPI-1169 PO; +BENZ1TAB7 PO; +BISA10SU11 RC; -FERR325T23 PO; -LISI2.5T2 PO; +MAG-151 PO; -MAG30ORA PO; -METF-440 PO; +MIRT7.5T10 PO; +MULT-213 PO; +NA P133E RC; +OLAN5TAB3 PO; +PALI234D IM; -PANT40TA49 PO
[2023-05-24 22:30] VITALS: BP 103/74; TEMP 97.6; O2SAT 98
[2023-05-24] MEDS ORDERED: PANT40TA2 PO (23:20)
[2023-05-24] MEDS ORDERED: SENN-261 PO (23:21)
[2023-05-24] MEDS ORDERED: LISI2.5T2 PO (23:22)
[2023-05-24] MEDS ORDERED: DOCU100C36 PO (23:22)
[2023-05-24] MEDS ORDERED: FERR325T23 PO (23:23)
[2023-05-24] MEDS ORDERED: ASPI-1169 PO (23:24)
[2023-05-24] MEDS ORDERED: MEGE40TA5 PO (23:25)
[2023-05-24] MEDS ORDERED: MIRT-90 PO (23:26)
[2023-05-24] MEDS ORDERED: DEXTROSE 50%-WATER 50 ML DISP.SYRIN IV PRN (23:30)
[2023-05-24] MEDS: BLOOD SUGAR DIAGNOSTIC 1 EACH STRIP IN ONE (23:30)
[2023-05-24] MEDS ORDERED: ACETAMINOPHEN 325 MG TABLET PO PRN (23:30)
[2023-05-24] MEDS ORDERED: TEMAZEPAM 7.5 MG CAPSULE PO PRN (23:30)
[2023-05-24] MEDS ORDERED: MAG HYDROX/AL HYDROX/SIMETH 30 ML UDC PO PRN (23:30)
[2023-05-24] MEDS ORDERED: MAGNESIUM HYDROXIDE 30 ML UDC PO PRN (23:30)
[2023-05-25 08:00] VITALS: BP 104/56; TEMP 98.6; O2SAT 97
[2023-05-25] MEDS: GLUCERNA SHAKE 237 ML CAN PO SCH (08:00)
[2023-05-25] MEDS: BLOOD SUGAR DIAGNOSTIC 1 EACH STRIP IN SCH (08:32)
[2023-05-25] MEDS ORDERED: MAGNESIUM HYDROXIDE 30 ML UDC PO PRN (11:00)
[2023-05-25] MEDS ORDERED: Medication Not On Formulary EA (Mag Hydrox/Aluminum Hyd/Simeth (Geri-Lanta Liquid) 30 ML PO PRN (11:00)
[2023-05-25] MEDS ORDERED: BISACODYL SUPP (10 MG) 10 MG/SUPP.RECT SUPP.RECT RC PRN (11:00)
[2023-05-25] MEDS ORDERED: ACETAMINOPHEN 325 MG TABLET PO PRN (11:00)
[2023-05-25] MEDS: BENZTROPINE MESYLATE (1 MG) 1 MG TABLET PO SCH (14:33)
[2023-05-25] MEDS: risperiDONE 1 MG TABLET PO SCH (14:33)
[2023-05-25 16:00] VITALS: BP 124/64; TEMP 98.6; O2SAT 98
[2023-05-25] MEDS: MEGESTROL ACETATE 40 MG TABLET PO SCH (16:45)
[2023-05-25] MEDS: DOCUSATE SODIUM 100 MG CAPSULE PO SCH (16:45)
[2023-05-25] MEDS ORDERED: BENZTROPINE MESYLATE (1 MG) 1 MG TABLET PO SCH (17:00)
[2023-05-25] MEDS: Z GUARD REMEDY 4 OZ OINT TP PRN (18:52)
[2023-05-25 20:00] VITALS: BP 108/70; TEMP 98.6; O2SAT 96
[2023-05-25] MEDS ORDERED: MIRTAZAPINE 15 MG TABLET PO SCH (22:00)
[2023-05-25] MEDS: SENNOSIDES 8.6 MG TABLET PO SCH (22:24)
[2023-05-26] MEDS: LEVOTHYROXINE SODIUM 125 MCG TABLET PO SCH (07:40)
[2023-05-26 08:00] VITALS: BP 109/67; TEMP 98.6; O2SAT 95
[2023-05-26] MEDS: PANTOPRAZOLE 40 MG TABLET.DR PO SCH (08:27)
[2023-05-26] MEDS: MULTIVIT W/MINERALS 1 TAB TABLET PO SCH (08:27)
[2023-05-26] MEDS: FERROUS SULFATE (325 MG) 325 MG/TAB TABLET PO SCH (08:27)
[2023-05-26] MEDS: ASPIRIN 81 MG TAB.CHEW PO SCH (08:27)
[2023-05-26] MEDS: LISINOPRIL (5MG) 5 MG TABLET PO SCH (08:28)
[2023-05-26] MEDS: INSULIN REGULAR, HUMAN 100 UNIT/ML 3 ML VIAL SQ PRN (11:51)
[2023-05-26 12:03] LABS: BASOPHILS % (AUTO) 0.5 % (0.0-2.0); EOSINOPHILS # (AUTO) 0.3 K/uL (0.0-0.7); EOSINOPHILS % (AUTO) 5.7 % (0.0-6.0); HEMATOCRIT 36 % (33-45); HEMOGLOBIN 12.2 g/dL (11.5-14.8); LYMPHOCYTES # (AUTO) 1.3 K/uL (0.8-4.8); LYMPHOCYTES % (AUTO) 24.4 % (20.0-44.0); MEAN CORPUSCULAR HEMOGLOBIN 29 PG (26.0-33.0); MEAN CORPUSCULAR HGB CONC 34 g/dl (31.0-36.0); MEAN CORPUSCULAR VOLUME 87 fL (82-100); MONOCYTES # (AUTO) 0.4 K/uL (0.1-1.30); MONOCYTES % (AUTO) 7.4 % (2.0-12.0); NEUTROPHILS # (AUTO) 3.3 K/uL (1.8-8.9); PLATELET COUNT (AUTO) 225 K/uL (150-450); RED BLOOD CELL COUNT(AUTO) 4.17 MIL/uL (4.0-5.2); RED CELL DISTRIBUTION WIDTH 17.4 % (11.5-15.0); WHITE BLOOD COUNT (AUTO) 5.3 K/uL (4.3-11.0)
[2023-05-26 12:09] LABS: CALCIUM, SERUM 8.8 mg/dL (8.5-10.1); CREATININE 0.9 mg/dL (0.6-1.3); POTASSIUM 3.7 mmol/L (3.5-5.1)
[2023-05-26] MEDS: GLUCERNA SHAKE 237 ML CAN PO SCH (12:41)
[2023-05-26 16:00] VITALS: BP 104/52; TEMP 97.8; O2SAT 96
[2023-05-26 20:21] VITALS: BP 114/63; TEMP 98; O2SAT 96
[2023-05-27 08:00] VITALS: BP 132/80; TEMP 97.7; O2SAT 97
[2023-05-27 16:00] VITALS: BP 103/50; TEMP 98.2; O2SAT 100
[2023-05-27 20:31] VITALS: BP 121/58; TEMP 98.2; O2SAT 99
[2023-05-28 08:00] VITALS: BP 121/64; TEMP 97.9; O2SAT 96
[2023-05-28] MEDS: PALIPERIDONE PALMITATE 156 MG/ML SYRINGE IM ONE (12:27)
[2023-05-28 16:00] VITALS: BP 147/92; TEMP 98.8; O2SAT 97
[2023-05-28 20:39] VITALS: BP 128/67; TEMP 98; O2SAT 96
[2023-05-29 08:00] VITALS: BP 103/58; TEMP 97.9; O2SAT 98
[2023-05-29 16:00] VITALS: BP 109/52; TEMP 98.6; O2SAT 97
[2023-05-29] MEDS: clonazePAM 0.5 MG TABLET PO PRN (18:41)
[2023-05-29 20:00] VITALS: BP 132/55; TEMP 98.5; O2SAT 96
[2023-05-30 08:00] VITALS: BP 109/95; TEMP 98.4; O2SAT 97
[2023-05-30 16:00] VITALS: BP 136/56; TEMP 98.1; O2SAT 96
[2023-05-30 20:00] VITALS: BP 143/83; TEMP 98; O2SAT 99
[2023-05-31 08:00] VITALS: BP 129/87; TEMP 97.7; O2SAT 94
[2023-06-24] MEDS ORDERED: PALIPERIDONE PALMITATE 234 MG/1.5 ML SYRINGE IM SCH (09:00)
== END 2023-05-31 15:00 | DRG 885 ==
LOC: GPS 20:21
PROVIDERS: ADMIT Psychiatry & Neurology Psychiatry; ATTEND Internal Medicine
DX: F29 Unspecified psychosis not due to a substance or known physiological condition (principal); E11.65 Type 2 diabetes mellitus with hyperglycemia; F79 Unspecified intellectual disabilities; E44.0 Moderate protein-calorie malnutrition; E87.1 Hypo-osmolality and hyponatremia; D68.59 Other primary thrombophilia; F03.94 Unspecified dementia, unspecified severity, with anxiety; F03.93 Unspecified dementia, unspecified severity, with mood disturbance; E86.1 Hypovolemia; Z74.09 Other reduced mobility; K42.9 Umbilical hernia without obstruction or gangrene; R26.9 Unspecified abnormalities of gait and mobility; E03.9 Hypothyroidism, unspecified; E78.5 Hyperlipidemia, unspecified; E66.9 Obesity, unspecified; Z68.34 Body mass index [BMI] 34.0-34.9, adult; K21.9 Gastro-esophageal reflux disease without esophagitis; R62.7 Adult failure to thrive; Z87.440 Personal history of urinary (tract) infections; R74.01 Elevation of levels of liver transaminase levels; E88.09 Other disorders of plasma-protein metabolism, not elsewhere classified; I10 Essential (primary) hypertension; Z79.899 Other long term (current) drug therapy; Z79.890 Hormone replacement therapy; E87.6 Hypokalemia; F25.9 Schizoaffective disorder, unspecified
CPT/HCPCS: 36415; 80048-TC; 80061-TC; 82962-TC; 85025-TC; 87081-TC; 97112-TC; 97530-TC; J1815; J2426